=== PATIENT | male | born 1995 | race Caucasian/White ===

== ENCOUNTER 2022-07-11 19:55 | Emergency (ER) | payer OTHER ==
[2022-07-11 20:33] VITALS: BP 124/64; PULSE 60; RESP 19; TEMP 98.5; BMI 33.0
== END 2022-07-11 22:40 | disposition left against medical advice (07) ==
LOC: JER 19:55
DX: R94.31 Abnormal electrocardiogram [ECG] [EKG] (principal)
CPT/HCPCS: 93005; 93010